=== PATIENT | female | born 1955 | race Caucasian/White ===

== ENCOUNTER 2024-04-02 03:34 | Day surgery (SDC) | payer OTHER ==
[2024-04-02] VITALS (7 sets, daily range): BP systolic 88–109; BP diastolic 52–64
[2024-04-02] MEDS ORDERED: NS 250 ML IV SCH (07:00)
[2024-04-02] MEDS ORDERED: CARVEDILOL6.25 MG PO (08:45)
[2024-04-02] MEDS ORDERED: Avidoxy100 MG PO (08:45)
[2024-04-02] MEDS ORDERED: SULFAMETHOXAZO1 EAC1 PO (08:46)
[2024-04-02] MEDS ORDERED: METOPROLOL TART25 MG PO (08:46)
== END 2024-04-02 12:28 | disposition home or self-care (01) ==
LOC: ATC 03:34
DX: A41.01 Sepsis due to Methicillin susceptible Staphylococcus aureus (principal); J18.9 Pneumonia, unspecified organism; L03.116 Cellulitis of left lower limb; I50.32 Chronic diastolic (congestive) heart failure; D63.8 Anemia in other chronic diseases classified elsewhere
CPT/HCPCS: 36415; 36430; 86850; 86900; 86901; 86920; J7050; P9016

== ENCOUNTER 2024-04-08 08:52 | Inpatient (IN) | payer OTHER ==
[~2024-04-08] VITALS: Ht 162.6 cm; Wt 55.6 kg
[~2024-04-08 08:52] MED LIST: Avidoxy100 MG PO; CARVEDILOL6.25 MG PO; METOPROLOL TART25 MG PO; SULFAMETHOXAZO1 EAC1 PO
[2024-04-08] MEDS ORDERED: NS 1,000 ML IV SCH (10:05)
[2024-04-08] MEDS ORDERED: NS IV ONE (10:05)
[2024-04-08] MEDS ORDERED: CefTRIAXone Sodium 2,000 MG in NS 100 ML IV ONE (10:05)
[2024-04-08] MEDS ORDERED: VANCOMYCIN HCL IV ONE (10:05)
[2024-04-08] MEDS ORDERED: Vancomycin HCL 1,250 MG in NS 250 ML IV ONE (10:10)
[2024-04-08 11:16] LABS: BASOPHILS ABSOLUTE AUTO 0.04 K/mm3 (0.00-0.23); BASOPHILS PERCENT AUTO 0 % (0-2); EOSINOPHILS ABSOLUTE AUTO 0.01 K/mm3 (0.00-0.68); EOSINOPHILS PERCENT AUTO 0 % (0-6); Hematocrit 34.5 % (33.0-51.0); Hemoglobin 11.2 g/dL (11.5-16.0); IMMATURE GRAN ABSOLUTE AUTO 0.19 K/mm3 (0.00-0.10); IMMATURE GRAN PERCENT AUTO 1 % (0-1); LYMPHOCYTES PERCENT AUTO 3 % (21-46); MONOCYTES ABSOLUTE AUTO 0.74 K/mm3 (0.16-1.47); MONOCYTES PERCENT AUTO 3 % (4-13); Mean Corpuscular HGB 29.6 pg (26.0-34.0); Mean Corpuscular HGB Conc 32.5 g/dL (31.5-36.5); Mean Corpuscular Volume 91 fL (80-100); NEUTROPHILS ABSOLUTE AUTO 21.53 K/mm3 (1.96-9.15); NEUTROPHILS PERCENT AUTO 92 % (41-73); Platelet Count 337 K/mm3 (150-400); RDW Coefficient Variation 15.1 % (11.7-14.2); RDW Standard Deviation 50.6 fL (35.1-46.3); Red Blood Cell Count 3.79 M/mm3 (3.80-5.20); White Blood Cell Count 23.31 K/mm3 (4.00-11.30)
[2024-04-08 11:51] LABS: Alanine Aminotransfer (ALT/SGP 17 U/L (12-78); Albumin/Globulin Ratio 0.3 (0.8-1.8); Alk Phos 84 U/L (50-136); Anion Gap 13 mmol/L (3-11); Aspartate Aminotrans (AST/SGOT 20 U/L (12-37); Bilirubin, Direct 0.2 mg/dL (0.0-0.3); Bilirubin, Indirect 0.3 mg/dL (0.1-0.7); Bilirubin, Total 0.5 mg/dL (0.1-1.0); Blood Urea Nitrogen 17 mg/dL (8-24); Bun/Creatinine Ratio 17.1 (12.0-20.0); CO2, Blood 23 mmol/L (21-32); Calcium, Blood 9.4 mg/dL (8.5-10.1); Chloride, Blood 100 mmol/L (98-108); Globulin, Blood 6.5 g/dL (2.2-4.0); Glomerular Filtration Rate 61 (60-); Glucose, Blood 126 mg/dL (70-99); Magnesium, Blood 1.6 mg/dL (1.6-2.4); Phosphorus, Blood 2.9 mg/dL (2.5-4.9); Potassium, Blood 3.6 mmol/L (3.5-5.5); Sodium, Blood 132 mmol/L (136-145); Total Protein, Blood 8.5 g/dL (6.4-8.2)
[2024-04-08 11:52] LABS: C-REACTIVE PROTEIN, EXT RANGE >19.000 mg/dL (0.000-0.300)
[2024-04-08] MEDS ORDERED: Acetaminophen 325 MG TABLET PO PRN (13:00)
[2024-04-08] MEDS ORDERED: FLU VACC TS2024-25(6MOS UP)/PF 45 MCG/0.5 ML SYRINGE IM SCH (13:00)
[2024-04-08 15:42] VITALS: BP 114/59
[2024-04-08] MEDS ORDERED: OxyCODONE 5 mg/Acetamin 325 mg TABLET PO PRN (16:20)
[2024-04-08] MEDS ORDERED: CeFAZolin Sodium 2,000 MG in NS 100 ML IV SCH (16:30)
--- NOTE | 2024-04-08 18:28 | NUR ---
SHIFT SUMMARY PT ADMITTED TO FLOOR AT 1540. PT TRANSFERED WITH SLIDER SHEET FROM ER BED. PT A&OX4. PT ADMITTED DUE TO L LOWER LEG CELLULITIS. LOWER LEGS ELEVATED. PT REPORTS PAIN WITH MOVEMENT, DENIED MEDICATION FOR PAIN. LEFT LEG WAS MARKED FROM ER. PHOTOS IN CHART. 2RN SKIN CHECK COMPLETE. MEDS RECONSILED. PT REPORTS UNABLE TO WALK ON L LEG. PT REPORTS BEING CONT. OF BM AND URINE, HAS PERWICK IN DUE TO PAIN AND UNABLE TO BEAR WEIGHT. PT REPORTS LOOSING 12 POUNDS IN PAST 3 WEEKS. PT ORIENTED TO ROOM, FALL PRECAUTIONS AND CALL LIGHT. PT CALLS APPROPRIATE, BED IN LOWEST POSITION. CALL LIGHT IN REACH. PLAN IS FOR PT TO RECEIE ANTIBIOTICS. PT ON FREE FLUID RESTRICTION
[2024-04-08 20:04] VITALS: BP 138/68
[2024-04-08] MEDS ORDERED: Lactobacil 2-S.Thermo-Bifido 1 1 Cap PO SCH (21:00)
[2024-04-09 04:08] VITALS: BP 117/64
--- NOTE | 2024-04-09 04:54 | NUR ---
SHIFT SUMMARY PATIENT IS ALERT AND ORIENTED. PATIENT HAS HAD NO ACUTE EVENTS THIS SHIFT. VITAL SIGNS REVIEWED. PATIENT HAS REPORTED A FEVER BUT HAS BEEN MEDICATED AND HAS BEEN WNL AT MORNING VITALS. PATIENT HAS REPORTED NAUSEA BUT HAS SUBSIDED W/O MEDICATION. PATIENT HAS NOT HAD PAIN, SOB OR VOMITTING. BED IN LOCKED AND LOWEST POSITION.
[2024-04-09 06:04] LABS: Hematocrit 29.2 % (33.0-51.0); Hemoglobin 9.5 g/dL (11.5-16.0); Mean Corpuscular HGB 29.7 pg (26.0-34.0); Mean Corpuscular HGB Conc 32.5 g/dL (31.5-36.5); Mean Corpuscular Volume 91 fL (80-100); Mean Platelet Volume 10.1 fL (9.1-12.4); Platelet Count 323 K/mm3 (150-400); RDW Coefficient Variation 15.2 % (11.7-14.2); RDW Standard Deviation 50.4 fL (35.1-46.3); White Blood Cell Count 19.55 K/mm3 (4.00-11.30)
[2024-04-09 06:31] LABS: Albumin, Blood 1.6 g/dL (3.4-5.0); Albumin/Globulin Ratio 0.3 (0.8-1.8); Bilirubin, Total 0.3 mg/dL (0.1-1.0); Bun/Creatinine Ratio 19.6 (12.0-20.0); Calcium, Blood 8.5 mg/dL (8.5-10.1); Creatinine, Blood 0.82 mg/dL (0.40-1.00); Globulin, Blood 5.3 g/dL (2.2-4.0); Potassium, Blood 3.6 mmol/L (3.5-5.5); Total Protein, Blood 6.9 g/dL (6.4-8.2)
[2024-04-09 07:35] VITALS: BP 122/70
[2024-04-09] MEDS ORDERED: Carvedilol 6.25 MG Tab PO SCH (08:00)
[2024-04-09] MEDS ORDERED: CeFAZolin Sodium 2,000 MG in NS 100 ML IV SCH (08:00)
[2024-04-09] MEDS ORDERED: NS 250 ML IV PRN (08:00)
[2024-04-09] MEDS ORDERED: Enoxaparin 40 MG/0.4 ML SYR SC SCH (09:00)
[2024-04-09] MEDS ORDERED: CefTRIAXone Sodium 1,000 MG in NS 100 ML IV SCH (12:00)
[2024-04-09 15:21] VITALS: BP 111/52
[2024-04-09 18:02] VITALS: BP 118/60
--- NOTE | 2024-04-09 19:27 | NUR ---
SHIFT SUMMARY PT A&OX4. PT ADMITTED DUE TO SEPSIS DUE TO CELLULITIS OF L LEG. PT LEFT LEG ELEVATED TO HEART LEVEL. PT RECEIVED IMAGING DURING SHIFT TODAY. PT REPORTS DECREASE IN APETITE, BUT ON 1L FREE WATER RESTRICTION. PT HAS EDEMA IN L LEG. PT REPORTED PAIN OF 8/10 TONIGHT, MEDICATED PER EMAR. PT ABLE TO STAND PIVOT WITH FWW. PLAN IS TO CONT. ANTIBIOTICS. VSS. PT DID NOT HAVE NAUSEA OR FEVER. LEG WAS MARKED TODAY. PT BED IN LOWEST POSITION, CALLS APPROPRIATE, CALL LIGHT IN REACH.
[2024-04-09 19:52] VITALS: BP 111/54
[2024-04-10 02:41] VITALS: BP 112/68
--- NOTE | 2024-04-10 03:40 | NUR ---
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 ALERT AND ORIENTED. CONTINUES TO RECEIVE ANTIBIOTICS FOR CELLULITIS OF LEFT LOWER LEG. AREA MARKED WITH INK, SWOLLEN, SKIN SLOUGHING OFF IN PATCHES. UP WITH ASSIST TO BEDSIDE COMMODE, ABLE TO MOVE SELF IN BED WITHOUT ASSIST. FREE ORAL LIQUIDS LIMITED. OCCASIONAL C/O PAIN/DISCOMFORT - SEE MAR FOR DETAILS OF ANALGESICS. HOB ELEVATED FOR COMFORT. HAS BEEN RESTING QUIETLY WITH FEW INTERRUPTIONS. CALL LIGHT IN REACH, RAILS UP X 2 AND BED IN LOW POSITION FOR SAFETY. WILL CONT TO MONITOR
[2024-04-10 06:04] LABS: BASOPHILS ABSOLUTE AUTO 0.04 K/mm3 (0.00-0.23); BASOPHILS PERCENT AUTO 0 % (0-2); EOSINOPHILS ABSOLUTE AUTO 0.05 K/mm3 (0.00-0.68); EOSINOPHILS PERCENT AUTO 0 % (0-6); Hematocrit 27.2 % (33.0-51.0); Hemoglobin 8.9 g/dL (11.5-16.0); IMMATURE GRAN ABSOLUTE AUTO 0.23 K/mm3 (0.00-0.10); IMMATURE GRAN PERCENT AUTO 1 % (0-1); LYMPHOCYTES ABSOLUTE AUTO 0.77 K/mm3 (0.84-5.20); LYMPHOCYTES PERCENT AUTO 4 % (21-46); MONOCYTES ABSOLUTE AUTO 0.88 K/mm3 (0.16-1.47); MONOCYTES PERCENT AUTO 4 % (4-13); Mean Corpuscular HGB Conc 32.7 g/dL (31.5-36.5); Mean Corpuscular Volume 92 fL (80-100); Mean Platelet Volume 9.9 fL (9.1-12.4); NEUTROPHILS ABSOLUTE AUTO 18.29 K/mm3 (1.96-9.15); NEUTROPHILS PERCENT AUTO 90 % (41-73); Platelet Count 343 K/mm3 (150-400); RDW Coefficient Variation 15.3 % (11.7-14.2); RDW Standard Deviation 51.1 fL (35.1-46.3); Red Blood Cell Count 2.97 M/mm3 (3.80-5.20); White Blood Cell Count 20.26 K/mm3 (4.00-11.30)
[2024-04-10 06:51] LABS: Bun/Creatinine Ratio 16.2 (12.0-20.0); Calcium, Blood 8.6 mg/dL (8.5-10.1); Creatinine, Blood 0.62 mg/dL (0.40-1.00); Potassium, Blood 3.1 mmol/L (3.5-5.5)
[2024-04-10 07:26] VITALS: BP 113/59
[2024-04-10] MEDS ORDERED: Potassium Chloride 20 MEQ TabCR PO ONE (09:00)
[2024-04-10 15:14] VITALS: BP 101/64
--- NOTE | 2024-04-10 18:02 | NUR ---
SHIFT SUMMARY: PT A&O X4. PLEASANT AND COOPERATIVE WITH CARE. PT ABLE TO TRANSFER STAND PIVOT ON R. LEG. FEVER OF 101.1 NOTED THIS AM. TYLENOL GIVEN FOR PAIN AND FEVER. TEMP CAME DOWN TO 98.2 POST TYLENOL. CELLULITIS LLE APPEARS LESS RED THIS SHIFT. STILL VERY EDEMEDOUS. RECEIVING IV ABX W/O COMPLICATIONS. POTASSIUM 3.1 WITH AM LABS. SUPPLEMENTED WITH PO K-DUR. CALL LIGHT IN REACH. BED IN LOWEST POSITION.
[2024-04-10 20:28] VITALS: BP 116/55
--- NOTE | 2024-04-11 04:02 | NUR ---
SHIFT SUMMARY ADMITTED FOR LLE CELLULITIS. FULL CODE. IV ANTIB RX ARE SCHEDULED. 1 L FREE WATER RESTRICTION. CARDIAC/SOFT BITE DIET. SHE IS CONTINENT. A&O X4. 1 ASSIST PIVOT TO BSC. ON RA. HX OF CHF. SHE SEEMS VERY WEAK. SHE DENIES PAIN THIS SHIFT. SHE WAS RECENTLY IN A [facility] 03/28 FOR THE SAME. MONITORING LABS.
[2024-04-11 04:21] VITALS: BP 111/58
[2024-04-11 07:43] VITALS: BP 114/62
[2024-04-11 09:01] LABS: BASOPHILS ABSOLUTE AUTO 0.05 K/mm3 (0.00-0.23); BASOPHILS PERCENT AUTO 0 % (0-2); EOSINOPHILS ABSOLUTE AUTO 0.07 K/mm3 (0.00-0.68); EOSINOPHILS PERCENT AUTO 0 % (0-6); Hematocrit 30.7 % (33.0-51.0); Hemoglobin 9.9 g/dL (11.5-16.0); IMMATURE GRAN ABSOLUTE AUTO 0.15 K/mm3 (0.00-0.10); IMMATURE GRAN PERCENT AUTO 1 % (0-1); LYMPHOCYTES ABSOLUTE AUTO 1.25 K/mm3 (0.84-5.20); LYMPHOCYTES PERCENT AUTO 6 % (21-46); MONOCYTES ABSOLUTE AUTO 1.16 K/mm3 (0.16-1.47); MONOCYTES PERCENT AUTO 6 % (4-13); Mean Corpuscular HGB 29.8 pg (26.0-34.0); Mean Corpuscular HGB Conc 32.2 g/dL (31.5-36.5); Mean Corpuscular Volume 93 fL (80-100); Mean Platelet Volume 9.3 fL (9.1-12.4); NEUTROPHILS ABSOLUTE AUTO 17.59 K/mm3 (1.96-9.15); NEUTROPHILS PERCENT AUTO 87 % (41-73); Platelet Count 385 K/mm3 (150-400); RDW Coefficient Variation 15.5 % (11.7-14.2); Red Blood Cell Count 3.32 M/mm3 (3.80-5.20); White Blood Cell Count 20.27 K/mm3 (4.00-11.30)
[2024-04-11 09:28] LABS: Bun/Creatinine Ratio 18.9 (12.0-20.0); Creatinine, Blood 0.58 mg/dL (0.40-1.00); Magnesium, Blood 1.7 mg/dL (1.6-2.4); Potassium, Blood 3.3 mmol/L (3.5-5.5)
[2024-04-11] MEDS ORDERED: Potassium Chloride 20 MEQ TabCR PO ONE (12:00)
[2024-04-11 15:17] VITALS: BP 104/55
--- NOTE | 2024-04-11 16:56 | NUR ---
PT IS AOX4 AND COOPERATIVE OF CARE. PT'S CELLULTIS AND EDEMA ON L LEG LOOKS TO BE IMPROVING. PT IS A ONE PERSON STAND AND PIVOT TO BSC. PT IS ABLE TO MAKE NEEDS KNOWN AND CALL LIGHT WITHIN REACH WILL CONTINUE TO MONITOR.
[2024-04-11] MEDS ORDERED: Carvedilol 6.25 MG Tab PO SCH (17:00)
[2024-04-11 20:38] VITALS: BP 120/66
--- NOTE | 2024-04-12 03:57 | NUR ---
SHIFT SUMMARY ADMITTED FOR LLE CELLULITIS. FULL CODE. IV ANTIB RX ARE SCHEDULED. SHE HAS BEEN STANDBY ASSIST W/FWW - BRP THIS SHIFT. ON RA. CARDIAC DIET. HX OF CHF, PAROXYSIMAL AFIB, AND RECENT HOSPITALIZATION IN [place] FOR THIS SAME LLE CELLULITIS. SHE IS A&O X4. HER SWELLING AND REDNESS APPEAR MUCH IMPROVED, AND SHE STATES SHE IS FEELING BETTER.
[2024-04-12 04:35] VITALS: BP 110/66
[2024-04-12 05:13] LABS: Hematocrit 28.3 % (33.0-51.0); Mean Corpuscular HGB 29.6 pg (26.0-34.0); Mean Corpuscular HGB Conc 31.8 g/dL (31.5-36.5); Mean Corpuscular Volume 93 fL (80-100); Mean Platelet Volume 10.7 fL (9.1-12.4); Platelet Count 341 K/mm3 (150-400); RDW Coefficient Variation 15.8 % (11.7-14.2); RDW Standard Deviation 54.3 fL (35.1-46.3); Red Blood Cell Count 3.04 M/mm3 (3.80-5.20); White Blood Cell Count 13.33 K/mm3 (4.00-11.30)
[2024-04-12 05:44] LABS: Bun/Creatinine Ratio 21.9 (12.0-20.0); Calcium, Blood 9.1 mg/dL (8.5-10.1); Creatinine, Blood 0.55 mg/dL (0.40-1.00); Potassium, Blood 4.1 mmol/L (3.5-5.5)
[2024-04-12 07:38] VITALS: BP 107/64
[2024-04-12 15:39] VITALS: BP 113/67
--- NOTE | 2024-04-12 16:28 | NUR ---
NO ACUTE CHANGES AT THIS TIME. PT CONTINUES TO BE AOX4 AND COOPERATIVE OF CARE. PT HAS BEEN INDEPENDENT IN ROOM AND CAN MAKE ALL NEEDS KNOWN. L CELLULITIS CONTINUES TO SHOW IMPROVEMENT. CALL LIGHT IS WITHIN REACH WILL CONTINUE TO MONITOR.
[2024-04-12 19:28] VITALS: BP 105/62
[2024-04-13 02:49] VITALS: BP 116/69
--- NOTE | 2024-04-13 04:50 | NUR ---
Pt A&O x4, VS WNL, UOP WNL, cellulitis in LLE is decreasing, still with pitting edema, area's of pink warm peeling skin anterior and posterior. No significant pain, and is independent with mobility. Remains on 1000 ml FWR.
[2024-04-13 05:11] LABS: Hematocrit 24.8 % (33.0-51.0); Hemoglobin 8.1 g/dL (11.5-16.0); Mean Corpuscular HGB 30.1 pg (26.0-34.0); Mean Corpuscular HGB Conc 32.7 g/dL (31.5-36.5); Mean Corpuscular Volume 92 fL (80-100); Mean Platelet Volume 9.7 fL (9.1-12.4); Platelet Count 390 K/mm3 (150-400); RDW Coefficient Variation 15.7 % (11.7-14.2); RDW Standard Deviation 51.8 fL (35.1-46.3); Red Blood Cell Count 2.69 M/mm3 (3.80-5.20); White Blood Cell Count 10.47 K/mm3 (4.00-11.30)
[2024-04-13 06:07] LABS: Albumin, Blood 1.5 g/dL (3.4-5.0); Anion Gap 10 mmol/L (3-11); Blood Urea Nitrogen 12 mg/dL (8-24); CO2, Blood 25 mmol/L (21-32); Calcium, Blood 9.1 mg/dL (8.5-10.1); Chloride, Blood 106 mmol/L (98-108); Ferritin, Serum 877 ng/mL (8-252); Glomerular Filtration Rate 101 (60-); Glucose, Blood 107 mg/dL (70-99); Phosphorus, Blood 3.2 mg/dL (2.5-4.9); Potassium, Blood 3.6 mmol/L (3.5-5.5); Sodium, Blood 137 mmol/L (136-145)
[2024-04-13 07:45] VITALS: BP 121/71
[2024-04-13] MEDS ORDERED: CEPH500 (12:00)
--- NOTE | 2024-04-13 12:44 | NUR ---
PT WAS DISHARGED HOME. PROVIDED INSTRUCTION FOR CARE. THIS NURSE WENT OVER D/C SUMARRY AND INSTRUCTIONS. PT AND LOVED ONE HAD NO QUESTIONS OR CONCERNS. ALL PIV.S REMOVED FROM PT.
== END 2024-04-13 12:44 | disposition home or self-care (01) | DRG 872 ==
LOC: ER 08:52 → MEDS 08:53 → ERHOLD 08:53 → MEDS 15:40
PROVIDERS: Internal Medicine; Student in an Organized Health Care Education/Training Program; ADMIT Internal Medicine
DX: A41.9 Sepsis, unspecified organism (principal); L03.116 Cellulitis of left lower limb; I50.32 Chronic diastolic (congestive) heart failure; E87.1 Hypo-osmolality and hyponatremia; I82.812 Embolism and thrombosis of superficial veins of left lower extremity; I48.0 Paroxysmal atrial fibrillation; D63.8 Anemia in other chronic diseases classified elsewhere; I95.9 Hypotension, unspecified; E88.09 Other disorders of plasma-protein metabolism, not elsewhere classified; R73.9 Hyperglycemia, unspecified; E87.6 Hypokalemia; Z88.8 Allergy status to other drugs, medicaments and biological substances
CPT/HCPCS: 36415; 71045; 73552; 73590; 73620; 73701; 80048; 80053; 80069; 82248; 82728; 83605; 83735; 83880; 84100; 84145; 85025; 85027; 86140; 87040; 93005; 93010; 93971; 96365; 96367; 97110; 97162; 97165; 97530; 99284-25; A9270; J0690; J0696; J1650; J3370; J7030; J7050; Q9967